=== PATIENT | female | born 1950 | race Caucasian/White ===

== ENCOUNTER 2019-11-24 08:38 | Day surgery (SDC) | payer MEDICARE ==
[2019-11-24] VITALS (15 sets, daily range): BP systolic 87–129; BP diastolic 53–70
[~2019-11-24] VITALS: Ht 167.6 cm; Wt 64.9 kg
[2019-11-24] MEDS ORDERED: normal saline 1000ml 1,000 ML IV PRN (09:00)
[2019-11-24 10:05] LABS: BASOPHILS # (AUTO) 0.1 X10'3 (0-0.2); BASOPHILS % (AUTO) 0.6 % (0-1); EOSINOPHILS # (AUTO) 0.1 X10'3 (0-0.9); EOSINOPHILS % (AUTO) 0.9 % (0-6); HEMATOCRIT 49.2 % (35.0-45.0); HEMOGLOBIN 16.9 g/dl (12.0-16.0); LYMPHOCYTES # (AUTO) 1.4 X10'3 (1.1-4.8); LYMPHOCYTES % (AUTO) 11.7 % (21-51); MEAN CORPUSCULAR HEMOGLOBIN 30.7 PG (27.0-31.0); MEAN CORPUSCULAR HGB CONC 34.3 g/dL (33.0-36.5); MEAN CORPUSCULAR VOLUME 89.5 FL (78-98); MEAN PLATELET VOLUME 8.8 FL (7.4-10.4); MONOCYTES # (AUTO) 0.6 X10'3 (0-0.9); MONOCYTES % (AUTO) 5.5 % (2-12); NEUTROPHILS # (AUTO) 9.5 X10'3 (1.8-7.7); NEUTROPHILS % (AUTO) 81.3 % (42-75); PLATELET COUNT 208 X10'3 (140-440); RED CELL DISTRIBUTION WIDTH 13.9 % (11.5-14.5); WHITE BLOOD COUNT 11.7 X10'3 (4.5-11.0)
[2019-11-24 10:14] LABS: ALBUMIN 4.8 G/DL (3.4-5.0); ANION GAP 11 (8-16); BLOOD UREA NITROGEN 9 MG/DL (7-18); BUN/CREATININE RATIO 11.8 (6.6-38.0); CALCIUM 10.1 MG/DL (8.5-10.1); CHLORIDE 104 MMOL/L (99-107); CREATININE 0.76 MG/DL (0.40-0.90); GLUCOSE 92 MG/DL (70-104); POTASSIUM 3.9 MMOL/L (3.5-5.1); SODIUM 141 MMOL/L (135-145); TOTAL CARBON DIOXIDE 26.4 MMOL/L (24-32); eGFR 75 ML/MIN
[2019-11-24] MEDS ORDERED: CA C1TAB89 PO (11:16)
[2019-11-24] MEDS ORDERED: LIDOcaine 1%/PF 5ML 10 MG/ML VIAL ONE (11:22)
[2019-11-24] MEDS ORDERED: fentaNYL/PF 50MCG/1 ML 2ML syringe ONE (11:22)
[2019-11-24] MEDS ORDERED: CHOL50004 PO (11:24)
[2019-11-24] MEDS ORDERED: PHYT100T PO (11:24)
[2019-11-24] MEDS ORDERED: LUTE1CAP PO (11:24)
[2019-11-24] MEDS ORDERED: LIPA1CAP8 PO (11:24)
[2019-11-24] MEDS ORDERED: COLE1TAB4 PO (11:24)
[2019-11-24] MEDS ORDERED: MULT-1085 PO (11:24)
[2019-11-24] MEDS ORDERED: CIME200T95 PO (11:24)
[2019-11-24] MEDS ORDERED: NIA500ERT PO (11:24)
[2019-11-24] MEDS ORDERED: CAYE450C PO (11:24)
[2019-11-24] MEDS ORDERED: gelatin sponge, absorbable (Gelfoam 12-7MM) sponge TP ONE (11:35)
[2019-11-24] MEDS ORDERED: normal saline 1000ml 1,000 ML IV SCH (12:12)
== END 2019-11-24 15:45 | disposition home or self-care (01) ==
LOC: SSTAY O 08:38 → MED 3N 08:42 → SSTAY O 15:45
PROVIDERS: ATTEND Radiology Vascular & Interventional Radiology
DX: C78.7 Secondary malignant neoplasm of liver and intrahepatic bile duct (principal); C80.1 Malignant (primary) neoplasm, unspecified; K76.89 Other specified diseases of liver; R19.7 Diarrhea, unspecified
CPT/HCPCS: 36415; 47000; 76942; 80048; 85025; 85610; 88341; J3010; 88305; 88342